=== PATIENT | male | born 1970 | race Caucasian/White ===

== ENCOUNTER 2017-06-29 10:50 | Emergency (ER) | payer OTHER ==
[~2017-06-29] VITALS: Ht 180.3 cm; Wt 87.1 kg
[2017-06-29] MEDS ORDERED: NAPR550 PO (11:39)
[2017-06-29] MEDS ORDERED: Voltaren100 GM TOP (11:39)
== END 2017-06-29 11:46 | disposition home or self-care (01) ==
LOC: ER 10:50
DX: S93.401A Sprain of unspecified ligament of right ankle, initial encounter (principal); M25.462 Effusion, left knee; F17.200 Nicotine dependence, unspecified, uncomplicated; W22.8XXA Striking against or struck by other objects, initial encounter; Z88.0 Allergy status to penicillin; Z88.5 Allergy status to narcotic agent
CPT/HCPCS: 29515; 73610; 99283

== ENCOUNTER 2020-04-12 10:14 | Emergency (ER) | payer OTHER ==
[~2020-04-12] VITALS: Ht 180.3 cm; Wt 90.7 kg
[~2020-04-12 10:14] MED LIST: NAPR550 PO; Voltaren100 GM TOP
[2020-04-12] MEDS ORDERED: IBUP400 PO (11:05)
[2020-04-12] MEDS ORDERED: CYCL10 PO (13:29)
[2020-04-12] MEDS ORDERED: HYDR1TAB94 PO (13:29)
== END 2020-04-12 13:42 | disposition home or self-care (01) ==
LOC: ER 10:14
DX: S16.1XXA Strain of muscle, fascia and tendon at neck level, initial encounter (principal); S20.219A Contusion of unspecified front wall of thorax, initial encounter; Z88.0 Allergy status to penicillin; Z88.5 Allergy status to narcotic agent; V49.40XA Driver injured in collision with unspecified motor vehicles in traffic accident, initial encounter; Y92.410 Unspecified street and highway as the place of occurrence of the external cause
CPT/HCPCS: 70450; 71046; 72070; 72125; 99284-25; L0160

== ENCOUNTER 2023-06-20 18:58 | Emergency (ER) | payer OTHER ==
[~2023-06-20] VITALS: Ht 175.3 cm; Wt 92.5 kg
[~2023-06-20 18:58] MED LIST changes: +CYCL10 PO; +HYDR1TAB94 PO; +IBUP400 PO
[2023-06-20 19:02] VITALS: BP 207/113
== END 2023-06-20 21:14 | disposition home or self-care (01) ==
LOC: ER 18:58
DX: M25.512 Pain in left shoulder (principal); F17.210 Nicotine dependence, cigarettes, uncomplicated; Z79.899 Other long term (current) drug therapy; Z88.0 Allergy status to penicillin; Z88.5 Allergy status to narcotic agent; V43.52XA Car driver injured in collision with other type car in traffic accident, initial encounter; Y92.410 Unspecified street and highway as the place of occurrence of the external cause
CPT/HCPCS: 73030; 99284-25; A9270